=== PATIENT | male | born 1945 | race Caucasian/White ===

== ENCOUNTER → 2023-08-21 18:48 | Outpatient (REF) | payer MEDICARE, OTHER, SELFPAY ==
[2023-08-21 20:05] LABS: TSH Reflex To Free T4 0.84 uIU/ml (0.47-4.68)
== END ==
LOC: CLAB 18:48
PROVIDERS: ATTENDING PHYSICIAN Family Medicine
DX: F41.1 Generalized anxiety disorder (principal)
CPT/HCPCS: 84443